=== PATIENT | female | born 1975 | race Caucasian/White ===

== ENCOUNTER 2016-12-12 09:46 | Emergency (ER) | payer OTHER ==
[2016-12-12 09:58] VITALS: BP 132/80
--- NOTE | 2016-12-12 10:34 | UC ---
Skin Complaint HPI - HPI Summary HPI Summary: Patient is complaining of pain and itching all over her head and neck. has been this way for a few days. - History of Current Complaint Chief Complaint: UCSkin Time Seen by Provider: 12/12/16 09:51 Stated Complaint: SKIN COMPLAINT Hx Obtained From: Patient Hx Last Menstrual Period: 12/08/16 ?: No Onset/Duration: Sudden Onset, Lasting Days Skin Exposure Onset/Duration: Days Ago Timing: Constant Onset Severity: Mild Current Severity: Moderate Location: Diffuse Character: Pruritus, Pain, Redness Aggravating: Touch Related History: Insect Bite/Sting - Allergy/Home Medications Allergies/Adverse Reactions: Allergies Allergy/AdvReac Type Severity Reaction Status Date / Time Penicillins Allergy Anaphylatic Verified 02/05/16 10:03 Shock Home Medications: Home Medications Alprazolam [Xanax] 0.5 mg PO ONCE PRN 12/12/16 [History Confirmed 12/12/16] Sertraline HCl [Zoloft] 50 mg PO DAILY 12/12/16 [History Confirmed 12/12/16] Review of Systems Constitutional: Negative Skin: Rash Eyes: Negative ENT: Negative Respiratory: Negative Cardiovascular: Negative Gastrointestinal: Negative Genitourinary: Negative Motor: Negative Neurovascular: Negative Musculoskeletal: Negative Neurological: Negative Psychological: Negative All Other Systems Reviewed And Are Negative: Yes PMH/Surg Hx/FS Hx/Imm Hx Previously Healthy: Yes - Surgical History Surgical History: Yes Surgery Procedure, Year, and Place: nasal surgery X2 1992,1998. UTERINE POLYPECTOMY 2013 [facility]. LEFT ELBOW GANGLIONECTOMY- JAN 2015 - Family History Known Family History: Positive: Other - BREAST CA - Social History Alcohol Use: Occasionally Alcohol Amount: 1-2 DRINKS/WEEK Substance Use Type: None Smoking Status (MU): Former Smoker Length of Time of Smoking/Using Tobacco: 15 YRS Have You Smoked in the Last Year: Yes When Did the Patient Quit Smoking/Using Tobacco: 11/2014 - Immunization History Most Recent Influenza Vaccination: never Most Recent Tetanus Shot: unsure Most Recent Pneumonia Vaccination: never Physical Exam Triage Information Reviewed: Yes Appearance: Well-Appearing, Well-Nourished, Pain Distress Vital Signs: Initial Vital Signs Temp 96.6 F 12/12/16 09:51 Pulse 98 12/12/16 09:51 Resp 14 12/12/16 09:51 BP 132/80 12/12/16 09:51 Pulse Ox 98 12/12/16 09:51 Vital Signs Reviewed: Yes Eye Exam: Normal Eyes: Positive: Conjunctiva Clear ENT Exam: Normal ENT: Positive: Hearing grossly normal, Pharynx normal, TMs normal Dental Exam: Normal Neck exam: Normal Neck: Positive: Supple, Nontender, No Lymphadenopathy Respiratory Exam: Normal Respiratory: Positive: Chest non-tender, Lungs clear, Normal breath sounds Cardiovascular Exam: Normal Cardiovascular: Positive: RRR, No Murmur, Pulses Normal Abdominal Exam: Normal Bowel Sounds: Positive: Present Musculoskeletal Exam: Normal Neurological Exam: Normal Psychological Exam: Normal Skin: Positive: rashes - neck and scalp is full o f red bites, hives on scalp, visible knits and live lice in hair Course/Dx - Course Course Of Treatment: hx obtained, exam performed, meds reviewed, educated on treatment of lice - Differential Diagnoses - Skin Complaint Differential Diagnoses: Cellulitis, Contact Dermatitis, Tick Born Illness, Urticaria - Diagnoses Provider Diagnoses: pediculosis Discharge - Discharge Plan Condition: Stable Disposition: HOME Prescriptions: predniSONE TAB* [Deltasone TAB*] 40 mg PO DAILY #14 tab Patient Education Materials: Pediculosis (ED) Referrals: Nolan De Paz MD [Primary Care Provider] - Additional Instructions: 1. use the RIT shampoo on all members of the household. 2. Clean all bedding and furinture 3. COmb all hair with the tiny tooth nit comb daily until no nits are found.
== END 2016-12-12 10:37 | disposition home or self-care (01) ==
LOC: UCCORT 09:46
DX: B85.2 Pediculosis, unspecified (principal); Z87.891 Personal history of nicotine dependence; Z88.0 Allergy status to penicillin
CPT/HCPCS: 99212; G0463